=== PATIENT | female | born 1980 | race Caucasian/White ===

== ENCOUNTER 2024-03-23 07:11 | Emergency (ER) | payer OTHER ==
[2024-03-23] MEDS: Metoclopramide 10 MG/2 ML SDV IVPUSH ONE (08:02)
[2024-03-23] MEDS: diphenhydrAMINE 50 MG/ML SDV IVPUSH ONE (08:02)
[2024-03-23] MEDS: Sodium Chloride 0.9% 10 ML Syringe FLUSH PRN (08:03)
[2024-03-23] MEDS: Ketorolac 30 MG/ML SDV IVPUSH ONE (08:03)
[2024-03-23] MEDS: Sodium Chloride 0.9% 2.5 ML Syringe FLUSH PRN (08:03)
[2024-03-23] MEDS: Ondansetron 4 MG/2 ML SDV IVPUSH ONE (08:10)
[2024-03-23 08:24] LABS: BASOPHILS ABSOLUTE AUTO 0.04 K/uL (0.00-0.20); BASOPHILS PERCENT AUTO 0.4 % (0.0-1.0); EOSINOPHILS ABSOLUTE AUTO 0.07 K/uL (0.00-0.45); EOSINOPHILS PERCENT AUTO 0.6 % (0.0-6.0); HEMATOCRIT 40.3 % (37.0-47.0); HEMOGLOBIN 13.6 g/dL (12.0-16.0); IMMATURE GRAN ABSOLUTE AUTO 0.02 K/uL (0.00-0.05); IMMATURE GRAN PERCENT AUTO 0.2 % (0.0-0.4); LYMPHOCYTES ABSOLUTE AUTO 1.99 K/uL (1.00-4.80); LYMPHOCYTES PERCENT AUTO 18.3 % (24.0-44.0); MEAN CORPUSCULAR HGB CONC 33.7 g/dL (32.0-36.0); MEAN PLATELET VOLUME 9.5 fL (9.4-12.3); MONOCYTES ABSOLUTE AUTO 0.63 K/uL (0.00-0.80); MONOCYTES PERCENT AUTO 5.8 % (0.0-8.0); NEUTROPHILS ABSOLUTE AUTO 8.13 K/uL (1.80-7.70); NEUTROPHILS PERCENT AUTO 74.7 % (41.0-71.0); PLATELET COUNT,PLT 274 K/uL (150-400); RED BLOOD CELL COUNT 4.53 M/uL (4.10-5.30); WHITE BLOOD CELL COUNT,WBC 10.88 K/uL (3.9-11.3)
[2024-03-23 09:21] LABS: ALBUMIN 3.8 g/dL (3.4-5.0); BILIRUBIN TOTAL 1.7 mg/dL (0.2-1.0); CARBON DIOXIDE,CO2 26.1 mmol/L (21.0-32.0); CREATININE 0.8 mg/dL (0.6-1.0); EST CRCL DRUG DOSING (CG) 83.13 mL/min; POTASSIUM,K 3.8 mmol/L (3.5-5.1); PROTEIN TOTAL,TP 7.5 g/dL (6.4-8.2)
== END 2024-03-23 09:34 | disposition home or self-care (01) ==
LOC: MW.ED 07:11
DX: G43.909 Migraine, unspecified, not intractable, without status migrainosus (principal); Z88.0 Allergy status to penicillin; Z88.1 Allergy status to other antibiotic agents; Z79.899 Other long term (current) drug therapy; Z75.8 Other problems related to medical facilities and other health care
CPT/HCPCS: 36415; 80053; 85025; 96374; 96375; 99283; J1200; J1885; J2405; J2765; J3490; 99284

== ENCOUNTER 2024-09-13 04:41 | Emergency (ER) | payer OTHER ==
[2024-09-13] MEDS: Ketorolac 60 MG/2 ML SDV IM ONE (05:01)
[2024-09-13] MEDS: Cyclobenzaprine 10 MG Tab PO ONE (05:01)
== END 2024-09-13 05:51 | disposition home or self-care (01) ==
LOC: MW.ED 04:41
DX: M25.551 Pain in right hip (principal); Z79.899 Other long term (current) drug therapy; Z88.0 Allergy status to penicillin; Z88.1 Allergy status to other antibiotic agents
CPT/HCPCS: 73502; 96372; 99283; A9270; J1885

== ENCOUNTER 2024-10-27 06:54 | Emergency (ER) | payer OTHER | END 2024-10-27 08:40 | disposition home or self-care (01) | LOC: MW.ED 06:54 | DX: U07.1 COVID-19 (principal); Z79.899 Other long term (current) drug therapy; Z88.0 Allergy status to penicillin; Z88.1 Allergy status to other antibiotic agents | CPT/HCPCS: 71046; 71046-26; 87428-QW; 87651-QW; 99285 ==

== ENCOUNTER 2024-12-07 18:16 | Emergency (ER) | payer OTHER | END 2024-12-07 20:49 | disposition home or self-care (01) | LOC: MW.ED 18:16 | DX: A08.4 Viral intestinal infection, unspecified (principal); Z88.0 Allergy status to penicillin; Z88.8 Allergy status to other drugs, medicaments and biological substances; Z79.51 Long term (current) use of inhaled steroids; Z79.899 Other long term (current) drug therapy; Z75.8 Other problems related to medical facilities and other health care | CPT/HCPCS: 87428-QW; 99283; 99284 ==

== ENCOUNTER 2025-06-20 19:56 | Emergency (ER) | payer OTHER ==
[2025-06-20] MEDS: Lidocaine/Epineph/Tetracaine 3 ML Syringe TOP ONE (20:45)
[2025-06-20] MEDS: Lidocaine 1% PF 2 ML SDV INJECT ONE (21:19)
== END 2025-06-20 21:39 | disposition home or self-care (01) ==
LOC: MW.ED 19:56
DX: S61.211A Laceration without foreign body of left index finger without damage to nail, initial encounter (principal); Z79.899 Other long term (current) drug therapy; Z88.1 Allergy status to other antibiotic agents; Z88.0 Allergy status to penicillin; Z75.3 Unavailability and inaccessibility of health-care facilities; W26.8XXA Contact with other sharp object(s), not elsewhere classified, initial encounter
CPT/HCPCS: 12001; 99282; A9270; J2003